=== PATIENT | female | born 1950 | race Two or more races ===

== ENCOUNTER → 2016-07-07 | Outpatient (CLI) | payer OTHER, MEDICARE | LOC: BRMIMAGING 14:32 | PROVIDERS: ATTEND Family Medicine | DX: R06.00 Dyspnea, unspecified (principal); Z85.3 Personal history of malignant neoplasm of breast | CPT/HCPCS: 71020-PO ==

== ENCOUNTER 2016-12-12 10:17 | Day surgery (SDC) | payer OTHER, MEDICARE ==
[2016-12-12] MEDS ORDERED: MIDAZOLAM 2 MG/2 ML VIAL ONE (10:44)
[2016-12-12] MEDS ORDERED: FLUMAZENIL 0.5 MG/5 ML MDV IVP ONE (10:44)
[2016-12-12] MEDS ORDERED: NALOXONE HCL 0.4 MG/ML INJ ONE (10:44)
[2016-12-12] MEDS ORDERED: NS 1,000 ML IV SCH (10:45)
[2016-12-12] MEDS ORDERED: fentaNYL 100 MCG/2 ML INJ ONE ×2 (10:45→13:27)
[2016-12-12 16:43] VITALS: RESP 14
[2016-12-12] MEDS ORDERED: ONDANSETRON 4 MG/2 ML VIAL IVP PRN (16:56)
[2016-12-12] MEDS ORDERED: ACETAMINOPHEN 325 MG TAB PO ONE (17:00)
--- NOTE | 2016-12-12 17:11 | CPEKG ---
Heart Rate: 76 RR Interval: 789 P-R Interval: 176 QRSD Interval: 96 QT Interval: 380 QTC Interval: 428 P [place]: 23 QRS [place]: 1 T Wave [place]: -12 EKG Severity - BORDERLINE ECG - EKG Impression: SINUS RHYTHM EKG Impression: BORDERLINE T ABNORMALITIES, INFERIOR LEADS Electronically Signed By: Everardo Castaneda 13-Dec-2016 19:24:42
[2016-12-12 17:43] VITALS: BP 121/85; O2SAT 91
== END 2016-12-12 17:35 | disposition home or self-care (01) ==
LOC: FIMAGING 10:17
PROVIDERS: ATTEND Internal Medicine Hematology & Oncology
DX: D14.31 Benign neoplasm of right bronchus and lung (principal); R91.8 Other nonspecific abnormal finding of lung field; Z85.3 Personal history of malignant neoplasm of breast; Z90.13 Acquired absence of bilateral breasts and nipples
CPT/HCPCS: J2250; J2310; J3010

== ENCOUNTER 2017-01-01 09:39 | Inpatient (IN) | payer OTHER, MEDICARE ==
--- NOTE | 2017-01-01 07:54 | PDANEPAE ---
ANE History of Present Illness 66 yo female with lung mass, possible metastatic breast cancer. ANE Past Medical History - Cardiovascular History Hx Hypertension: Yes Hx Arrhythmias: No Hx Chest Pain: No Hx Coronary Artery / Peripheral Vascular Disease: No Hx CHF / Valvular Disease: No Hx Palpitations: No - Pulmonary History Hx COPD: No Hx Asthma/Reactive Airway Disease: No Hx Recent Upper Respiratory Infection: No Hx Oxygen in Use at Home: No Hx Sleep Apnea: Yes Sleep Apnea Screening Result - Last Documented: Positive Pulmonary History Comment: SANTHOSH positive -uses CPAP - Neurologic History Hx Cerebrovascular Accident: No Hx Seizures: No Hx Dementia: No - Endocrine History Hx Diabetes: Yes Hypothyroid: Yes Obesity: moderate Endocrine History Comment: type 2. hypothyroidism - Renal History Hx Renal Disorders: Yes Renal History Comment: hx of kidney stones with lithotripsy - Liver History Hx Hepatic Disorders: No - Neurological & Psychiatric Hx Hx Neurological and Psychiatric Disorders: Yes Neurological / Psychiatric History Comment: hx of depression - Cancer History Hx Cancer: Yes Cancer History Comment: breast CA w/lymph node excision R side- some on L side - Congenital Disorder History Hx Congenital Disorders: No - GI History Hx Gastrointestinal Disorders: No Gastrointestinal History Comment: gallstone-no issues - Other Health History Other Health History: Right lobe lung mass. gout. - Chronic Pain History Chronic Pain: No - Surgical History Prior Surgeries: lung bx -. 05/03/14 bilateral mastectomy and reconstruction with lexie and jesus. 02/20/11 ureteroscopy with cristina CHEUNG Review of Systems Review of Systems: - Exercise capacity METS (RN): 4 METS - Systems Constitutional: Reports: no symptoms Cardiac: Reports: no symptoms Respiratory: Reports: cough (chronic morning cough) ANE Patient History - Allergies Allergies/Adverse Reactions: levofloxacin [From Levaquin] Allergy (Intermediate, Verified 03/20/14 20:42) HALLUCINATIONS/ANXIETY lithium Allergy (Verified 12/31/16 15:01) Other-Enter Comments Sulfa (Sulfonamide Antibiotics) Allergy (Verified 03/20/14 20:42) - Home Medications Home medications: home medication list seen and reviewed Home Medications: Allopurinol [Allopurinol 300 MG (RX)] 300 mg PO DAILY 03/21/14 [Last Taken 12/31 20:00] Aspirin [Aspirin 81mg (*)] 81 mg PO DAILY 03/21/14 [Last Taken 12/25/16] Levothyroxine [Synthroid 100 mcg (*)] 100 mcg PO DAILY06 03/21/14 [Last Taken 09:00] Losartan Potassium [Cozaar] 100 mg PO HS 03/21/14 [Last Taken 12/31/16 20:00] amLODIPine BESYLATE [Norvasc 10 mg (*)] 10 mg PO DAILY 03/21/14 [Last Taken 10/09 08:00] metFORMIN HCL [Glucophage 500 mg (*)] 500 mg PO TID 03/21/14 [Last Taken 20:30] Herbals/Supplements -Info Only 1 ea PO DAILY 04/25/14 [Last Taken 12/31/16] Simvastatin [Zocor 20 mg] 20 mg PO HS 04/25/14 [Last Taken 12/31/16 20:00] Anastrozole 1 mg PO DAILY 12/11/16 [Last Taken 12/31/16 08:00] - NPO status NPO Since - Liquids (Date): 01/01/17 NPO Since - Liquids (Time): 09:00 - Anes Hx Anes Hx: no prior problems - Smoking Hx Smoking Status: Never smoked Marijuana use: No - Family Anes Hx Family Anes Hx: neg - N/A Family Hx Anesthesia Complications: none ANE Labs/Vital Signs - Vital Signs Vital Signs: reviewed preoperatively; see RN documention for details Height: 154.94 cm Weight: 83.007 kg ANE Physical Exam - Airway Neck exam: FROM Mallampati Score: Class 2 - Pulmonary Pulmonary: clear to auscultation - Cardiovascular Cardiovascular: regular rate and rhythym - ASA Status ASA Status: III ANE Anesthesia Plan Anesthesia Plan: general endotracheal anesthesia (lidocaine and Precedex infusions for POPC), epidural (thoracic epidural for POPC) Lines/Monitors: arterial line, additional IV Specialized Airway: double lumen tube Total IV Anesthesia: No
[~2017-01-01 09:39] MED LIST: ACETAMINOPHEN 325 MG TAB PO PRN; BUPIVACAINE 0.5% 30 ML SDV ONE; D50W 25 GM/50 ML SYR IVP PRN; DEXMEDETOMIDINE IN 0.9 % NACL 100 ML IV ONE; DEXMEDETOMIDINE IN 0.9 % NACL 100 ML IV SCH; HYDROmorphONE/DILAUDID 1 MG/ML INJ IVP PRN; LIDOCAINE IV ONE; NS 1,000 ML IV SCH; NS IV ONE; OXYCODONE/APAP 5/325 TAB PO PRN; ceFAZolin 2 GM/SWFI 2 GM/20 ML SYR IVP ONE
[2017-01-01] MEDS ORDERED: DEXMEDETOMIDINE HCL 400 MCG in NS 100 ML IV SCH (10:00)
[2017-01-01] MEDS ORDERED: ceFAZolin 2 GM/SWFI 2 GM/20 ML SYR IVP ONE (10:12)
[2017-01-01] MEDS ORDERED: LR 1,000 ML IV ONE (10:37)
[2017-01-01] MEDS ORDERED: LIDOCAINE 1% 2 ML INJ ID PRN (10:37)
[2017-01-01] MEDS ORDERED: MIDAZOLAM 2 MG/2 ML VIAL ONE (11:48)
[2017-01-01] MEDS ORDERED: fentaNYL 250 MCG/5 ML INJ ONE (12:31)
[2017-01-01] MEDS ORDERED: PROPOFOL/EMULSION 500 MG/50 ML BOTTLE IV ONE (12:31)
[2017-01-01] MEDS ORDERED: ROCURONIUM 100 MG/10 ML VIAL ONE (12:31)
[2017-01-01] MEDS ORDERED: DEXAMETHASONE 4 MG/ML VIAL ONE ×2 (12:31)
[2017-01-01] MEDS ORDERED: D10W 250 ML PRN HYPOGLYCEMIA IV (13:00)
[2017-01-01] MEDS ORDERED: NALOXONE HCL 0.4 MG/ML INJ IVP PRN ×3 (13:05→13:56)
[2017-01-01] MEDS ORDERED: HYDROmorphONE/DILAUDID 6 MG/30 ML PCA IV PRN (13:05)
[2017-01-01] MEDS ORDERED: epHEDrine SULFATE 10 MG/ML SYR ONE (13:34)
[2017-01-01] MEDS ORDERED: MIDAZOLAM 2 MG/2 ML VIAL IVP ONE (13:35)
[2017-01-01] MEDS ORDERED: ONDANSETRON 4 MG/2 ML VIAL ONE (13:40)
[2017-01-01] MEDS ORDERED: PROMETHAZINE HCL 25 MG/ML INJ IVP PRN (13:56)
[2017-01-01] MEDS ORDERED: LR 500 ML IV PRN (13:56)
[2017-01-01] MEDS ORDERED: OXYCODONE/APAP 5/325 TAB PO PRN (13:56)
[2017-01-01] MEDS ORDERED: ALBUTEROL 3 ML DEYVIAL IH PRN (13:56)
[2017-01-01] MEDS ORDERED: BUPIVACAINE 0.75% 10 ML SDV IO SCH ×2 (14:15→21:00)
[2017-01-01] MEDS ORDERED: INSULIN REGULAR HUMAN 100 UNIT/ML SC ONE (14:20)
--- NOTE | 2017-01-01 14:27 | POSTANESTH ---
Post Anesthetic Evaluation Cardiovascular Status: Normal, Stable Respiratory Status: Normal, Stable Level of Consciousness/Mental Status: Can Participate in Eval, Mildly Sleepy, Arousable Pain Control: Adequate, Prn Tx Ordered Nausea/Vomiting Control: Adequate, Prn Tx Ordered Complications Possibly Related to Anesthesia: None Noted
[2017-01-01] MEDS ORDERED: INSULIN REGULAR HUMAN 100 UNIT/ML ONE (14:29)
[2017-01-01] MEDS ORDERED: fentaNYL 100 MCG/2 ML INJ ONE (14:30)
[2017-01-01] MEDS: fentaNYL 100 MCG/2 ML INJ IVP PRN ×4 (14:35→15:23)
[2017-01-01] MEDS ORDERED: HYDROmorphONE/DILAUDID 1 MG/ML INJ IVP PRN (15:21)
[2017-01-01] MEDS ORDERED: HYDROmorphONE/DILAUDID 1 MG/ML INJ ONE (15:39)
[2017-01-01] MEDS: INSULIN REGULAR HUMAN 100 UNIT/ML SC SCH ×3 (16:08→20:48)
--- NOTE | 2017-01-01 17:12 | POSTOPPROG ---
Post Op Note Date of Operation: 01/01/17 Surgeon: Ori Vernon Upper Trimmer: Nain Geiger Anesthesiologist: Dr Dillon Anesthesia: GET(General Endotracheal) Pre-op Diagnosis: lung mass Post-op Diagnosis: same Indication: lung mass Procedure: Thorascopic right lower lobe wedge Findings: small mass Inf/Abcess present in the surg proc area at time of surgery?: No Depth: Organ Space EBL: Minimal Specimen(s): lung mass
[2017-01-01] MEDS: ATORVASTATIN CALCIUM 10 MG TAB PO SCH (20:40)
[2017-01-01] MEDS: ALLOPURINOL 300 MG TAB PO SCH (20:40)
[2017-01-01] MEDS: LOSARTAN POTASSIUM 50 MG TAB PO SCH (20:40)
[2017-01-01] MEDS: ceFAZolin 2 GM/DEXTROSE 100 ML IV SCH (20:41)
[2017-01-01] MEDS: ONDANSETRON 4 MG/2 ML VIAL IVP PRN (20:56)
[2017-01-01] MEDS ORDERED: ceFAZolin 2 GM/SWFI 2 GM/20 ML SYR IVP SCH (21:00)
[2017-01-01] MEDS ORDERED: NON-FORMULARY NEW DRUG (Simvastatin [Simvastatin] 20 MG) PO SCH (21:00)
[2017-01-01] MEDS ORDERED: NON-FORMULARY NEW DRUG (Losartan Potassium [Cozaar] 100 MG) PO SCH (21:00)
[2017-01-01] MEDS: BUPIVACAINE 0.75% 10 ML SDV IO SCH (23:07)
[2017-01-02 04:52] LABS: % IMMATURE GRANULYOCYTES 0.6 % (0.0-1.1); ABSOLUTE IMMATURE GRANULOCYTES 0.06 10^3/uL (0.00-0.10); ADD DIFF? NO; ADD MORPH? NO; ADD SCAN? NO; ATYPICAL LYMPHOCYTE FLAG 10 (0-99); FRAGMENT RBC FLAG 0 (0-99); HEMATOCRIT 36.5 % (38.0-47.0); HEMOGLOBIN 12.5 g/dL (12.6-16.3); LEFT SHIFT FLG 0 (0-99); LIPEMIA HEMOLYSIS FLAG 90 (0-99); MEAN CELL HEMOGLOBIN 29.2 pg (27.9-34.1); MEAN CELL HEMOGLOBIN CONCENTR. 34.2 g/dL (32.4-36.7); MEAN CELL VOLUME 85.3 fL (81.5-99.8); MEAN PLATELET VOLUME 9.7 fL (8.7-11.7); PLATELET CLUMPS FLAG 10 (0-99); PLATELET COUNT 247 10^3/uL (150-400); RED BLOOD CELL COUNT 4.28 10^6/uL (4.18-5.33); RED CELL DISTRIBUTION WIDTH 14.6 % (11.5-15.2)
[2017-01-02 05:07] LABS: ANION GAP 11 mEq/L (8-16); CARBON DIOXIDE 23 mEq/l (22-31); CHLORIDE 105 mEq/L (97-110); CREATININE 0.6 mg/dL (0.6-1.0); GLOMERULAR FILTRATION RATE > 60; GLUCOSE 177 mg/dL (70-100); POTASSIUM 4.2 mEq/L (3.5-5.2); SODIUM 139 mEq/L (134-144)
[2017-01-02] MEDS: ceFAZolin 2 GM/DEXTROSE 100 ML IV SCH (05:17)
[2017-01-02] MEDS: BUPIVACAINE 0.75% 10 ML SDV IO SCH ×4 (05:17→22:27)
[2017-01-02] MEDS: LEVOTHYROXINE 100 MCG TAB PO SCH (05:17)
[2017-01-02] MEDS: INSULIN REGULAR HUMAN 100 UNIT/ML SC SCH ×4 (07:28→21:03)
[2017-01-02] MEDS: ONDANSETRON 4 MG/2 ML VIAL IVP PRN ×2 (07:40→10:25)
[2017-01-02] MEDS: HYDROCODONE/APAP 5/325 TAB PO PRN ×4 (08:33→22:31)
[2017-01-02] MEDS: ANASTROZOLE 1 MG TAB PO SCH (08:34)
[2017-01-02] MEDS: ASPIRIN 81 MG CHEWABLE TAB PO SCH (12:24)
--- NOTE | 2017-01-02 15:20 | SOAPPROG ---
SOAP Progress Note Assessment/Plan: Assessment: 66-year-old female status post right VATS surgery and wedge resection, pathology pending, history of breast cancer Pain well controlled, tolerating diet Physical exam Awake alert comfortable Chest CTA bilaterally, right chest tube in place bandage dry Heart regular rhythm rate Chest tube no leak, minimal output Chest x-ray improving right pneumothorax Plan: Continue Dilaudid and marking catheter for pain. Continue chest tube Okay to transfer to floor Seen earlier today by Dr. Vernon. 01/02/17 15:18 Objective: Vital Signs Temp Pulse Resp BP Pulse Ox 36.5 C 62 20 128/64 H 92 01/02/17 12:00 01/02/17 12:00 01/02/17 12:00 01/02/17 12:00 01/02/17 12:00 Laboratory Results 01/02/17 04:30 01/02/17 04:30 01/01/17 01/02/17 01/03/17 05:59 05:59 05:59 Intake Total 1755 Output Total 852 Balance 903 ICD10 Worksheet Patient Problems: Problems Problem Status Onset Acute renal failure (ARF) Acute
--- NOTE | 2017-01-02 15:52 | ASMTCMCOM ---
CM Note CM Note Notes: Reviewed patient's chart/progress notes. Patient was ambulating in halls today per therapy notes. Cleared by PT/OT. Anticipate, at this time, patient will be able to discharge home with support of her family. Case Management available should any needs arise. Date Signed: 01/02/2017 03:51 PM Electronically Signed By:Suzanne Jhaveri RN
--- NOTE | 2017-01-02 16:40 | PDINTPN ---
Computer Tape Librarian Progress Note Assessment/Plan: Assessment: RLL nodule s/p wedge resection: REcovering well post-op. SANTHOSH: ? severity. Using CPAP nightly. DM: Hyperglycemia persists. Plan: Continue CPAP with sleep. Follow BSs on SSI. Restart Metformin prior to discharge. 01/02/17 16:41 Subjective: Feels OK, pain control good, denies dyspnea. Objective: Vital Signs Temp Pulse Resp BP Pulse Ox 36.8 C 65 22 H 121/65 H 91 L 01/02/17 16:00 01/02/17 16:00 01/02/17 16:00 01/02/17 16:00 01/02/17 16:00 Laboratory Results 01/02/17 04:30 01/02/17 04:30 01/01/17 01/02/17 01/03/17 05:59 05:59 05:59 Intake Total 1755 Output Total 852 Balance 903 Persistent right PTX. basilar atelectasis. Images reviewed. Physical Exam - Physical Exam General Appearance: alert, no apparent distress EENT: normal ENT inspection Neck: normal inspection Respiratory: lungs clear, normal breath sounds, other (wound OK) Cardiac/Chest: regular rate, rhythm, No edema Abdomen: normal bowel sounds, non-tender Skin: normal color, warm/dry Extremities: normal inspection Neuro/Psych: alert, normal mood/affect, oriented x 3 ICD10 Worksheet Patient Problems: Problems Problem Status Onset Acute renal failure (ARF) Acute
--- NOTE | 2017-01-02 17:17 | GCON ---
[f rep st] CONSULTATION PULMONARY/CRITICAL CARE CONSULTATION DATE OF CONSULTATION: 01/01/2017 REFERRING PHYSICIAN: Ori Vernon MD REASON FOR REFERRAL: Evaluation and management of hyperglycemia and sleep apnea. HISTORY OF PRESENT ILLNESS: The patient is a 66-year-old woman with a history of breast cancer treat ed with bilateral mastectomy in 2014. She was referred to Dr. Vernon when a followup CT scan of her c hest in October 2016 demonstrated a 10 mm right lower lobe nodule and a 7 mm left lower lobe nodule which were new compared to her scans in 2013. There was also a right lower lobe lymph node. A biop sy was done that was negative. Because of the ongoing concern for cancer, she was referred for surge ry. Dr. Vernon performed a right thoracotomy today, and the patient returned to the intensive care un it. She is recovering from surgery, was extubated, and currently reports good pain control. She is not having any cough. PAST MEDICAL HISTORY: 1. Obstructive sleep apnea requiring CPAP. She was diagnosed based on a sleep study done at [facility] about 9 years ago. She is on CPAP and uses it regularly. She reports that she "can't sleep wit hout it." The machine reports the AHI in the morning and it is usually less than 4. She denies dayt german hypersomnolence. 2. Diabetes, treated with oral hypoglycemic agents. 3. Hypertension. MEDICATIONS: Levothyroxine, aspirin, losartan, amlodipine, metformin, allopurinol, anastrozole, and simvastatin. ALLERGIES: Levofloxacin, lithium, and sulfa. SOCIAL HISTORY: The patient is a nonsmoker and denies excessive alcohol. FAMILY HISTORY: Unremarkable. REVIEW OF SYSTEMS: A 10-point review of systems adds nothing to the history of present illness physi giovani. PHYSICAL EXAMINATION: GENERAL: The patient is awake, alert, and in no acute distress. VITAL SIGNS: Blood pressure is 122/65 with a heart rate of 66. She is afebrile. Oxygen saturations are 94% on 9 L. HEENT: Normocephalic and atraumatic. No icterus. NECK: No JVD. Trachea is midline. CHEST: Decreased breath sounds in the right base. CARDIAC: Regular rate and rhythm without murmur. ABDOMEN : Soft, nontender. Bowel sounds are present. EXTREMITIES: No clubbing, cyanosis, or edema. NEURO LOGIC: Awake and alert. She is able to move all 4 extremities symmetrically. LABORATORY DATA: Blood sugars are 179-215. A chest x-ray shows a post right thoracotomy with an charmaine ropriately-placed chest tube and a small apical pneumothorax. Images reviewed. ASSESSMENT: 1. Lung nodule, status post thoracotomy/wedge resection. The patient is recovering well from surgery , with good pain control. 2. Obstructive sleep apnea. This was diagnosed 9 years ago. I do not know the severity of this. S he is on CPAP and reports good compliance and efficacy, as well as symptom control. 3. Diabetes. The patient currently has moderate hyperglycemia, not surprising given postoperatively . RECOMMENDATIONS: 1. The patient should continue CPAP use in the hospital. She will benefit from the use of supplemen elizabeth oxygen with CPAP if she has hypoxemia related to her anesthesia/pain control/splinting. 2. Close monitoring of blood sugars, using sliding scale insulin p.r.n. Metformin can be resumed af ter surgery. /[id number]/MODL
[2017-01-02] MEDS: LOSARTAN POTASSIUM 50 MG TAB PO SCH (20:08)
[2017-01-02] MEDS: ALLOPURINOL 300 MG TAB PO SCH (20:08)
[2017-01-02] MEDS: ATORVASTATIN CALCIUM 10 MG TAB PO SCH (20:09)
[2017-01-03] MEDS: LEVOTHYROXINE 100 MCG TAB PO SCH (05:32)
[2017-01-03] MEDS: BUPIVACAINE 0.75% 10 ML SDV IO SCH ×4 (05:33→22:21)
[2017-01-03] MEDS: HYDROCODONE/APAP 5/325 TAB PO PRN ×3 (05:39→15:34)
[2017-01-03] MEDS: INSULIN REGULAR HUMAN 100 UNIT/ML SC SCH ×4 (08:30→21:39)
--- NOTE | 2017-01-03 08:33 | SOAPPROG ---
SOAP Progress Note Assessment/Plan: Assessment/Plan: 66 Y F s/p wedge lung biopsy, POD#2. Pathology pending. Chest tube to water seal today. CXR in am. Possibly remove tubes tomorrow if does well. SANTHOSH. Using CPAP at night. DM. Metformin. Insulin protocol. Continue pain control and routine post op care. Increase activity/OOB today. Seen with Dr. Payton. Dispo: pending. likely to home when ready. S: No SOB. Painful, but meds helping. O: alert, nad mmm ctab no air leak, +tidaling rrr wounds dry, well dressed 01/03/17 08:28 Objective: Vital Signs Temp Pulse Resp BP Pulse Ox 36.9 C 68 14 155/97 H 93 01/03/17 08:00 01/03/17 08:00 01/03/17 08:00 01/03/17 08:00 01/03/17 08:00 Laboratory Results 01/02/17 04:30 01/02/17 04:30 01/02/17 01/03/17 01/04/17 05:59 05:59 05:59 Intake Total 1755 1800 Output Total 852 646 Balance 903 1154 ICD10 Worksheet Patient Problems: Problems Problem Status Onset Acute renal failure (ARF) Acute
[2017-01-03] MEDS: ASPIRIN 81 MG CHEWABLE TAB PO SCH (10:42)
[2017-01-03] MEDS: ANASTROZOLE 1 MG TAB PO SCH (10:43)
[2017-01-03] MEDS ORDERED: ENALAPRILAT DIHYDRATE 1.25 MG/ML VIAL IVP PRN (17:59)
[2017-01-03] MEDS ORDERED: LACTULOSE 20 GM/30 ML UDCUP PO PRN (19:36)
[2017-01-03] MEDS ORDERED: MAGNESIUM HYDROXIDE 30 ML UDCUP PO PRN (19:36)
[2017-01-03] MEDS ORDERED: POLYETHYLENE GLYCOL 3350 17 GM PKT PO PRN (19:36)
[2017-01-03] MEDS ORDERED: BISACODYL 10 MG SUPP PR PRN (19:36)
[2017-01-03] MEDS ORDERED: LORazepam 2 MG/ML INJ IVP PRN (20:35)
[2017-01-03] MEDS: KETOROLAC 15 MG/1 ML SDV IVP SCH (20:47)
[2017-01-03] MEDS: SENNOSIDES/DOCUSATE SODIUM TAB PO SCH (20:49)
[2017-01-03] MEDS: ATORVASTATIN CALCIUM 10 MG TAB PO SCH (20:49)
[2017-01-03] MEDS: LOSARTAN POTASSIUM 50 MG TAB PO SCH (20:49)
[2017-01-03] MEDS: ALLOPURINOL 300 MG TAB PO SCH (20:49)
[2017-01-04] MEDS: KETOROLAC 15 MG/1 ML SDV IVP SCH ×3 (00:08→13:24)
[2017-01-04] MEDS: BUPIVACAINE 0.75% 10 ML SDV IO SCH ×2 (01:18→09:52)
[2017-01-04] MEDS: LEVOTHYROXINE 100 MCG TAB PO SCH (05:49)
[2017-01-04 07:43] VITALS: PULSE 71; RESP 16; O2SAT 92
[2017-01-04] MEDS: INSULIN REGULAR HUMAN 100 UNIT/ML SC SCH ×2 (08:57→13:25)
[2017-01-04] MEDS: ANASTROZOLE 1 MG TAB PO SCH (09:52)
[2017-01-04] MEDS: ASPIRIN 81 MG CHEWABLE TAB PO SCH (09:52)
[2017-01-04] MEDS: SENNOSIDES/DOCUSATE SODIUM TAB PO SCH (09:52)
[2017-01-04 11:56] VITALS: BP 144/94; TEMP 98.1
--- NOTE | 2017-01-04 16:36 | ASDISCHSUM ---
Discharge Information Plan Status:Home with No Needs Medically Cleared to Leave:01/03/2017 Discharge Date:01/04/2017 03:11 PM CM D/C Disposition:Home, Routine, Self-Care ADT D/C Disposition:Home, Routine, Self-Care Projected Discharge Date:01/04/2017 03:11 PM Transportation at D/C:Family Discharge Delay Reason: Follow-Up Date:01/04/2017 03:11 PM Discharge Slot: Final Diagnosis: Placement Information Patient Contact Information Contact Name:NEIL Relationship:Alcon Address: [place]: [facility] Phone: [facility] Code: Email: Financial Information Financial Class: Primary Plan Desc:MEDICARE INPATIENT Primary Plan Number:[id number] Secondary Plan Desc:[employer]/MDR SUPPLEMENT Secondary Plan Number:[id number] Assessment Information [facility] CM Progress Note CM Note CM Note Notes: Reviewed patient's chart/progress notes. Patient was ambulating in halls today per therapy notes. Cleared by PT/OT. Anticipate, at this time, patient will be able to discharge home with support of her family. Case Management available should any needs arise. Date Signed: 01/02/2017 03:51 PM Electronically Signed By:Suzanne Jhaveri RN Intervention Information Intervention Type:*IM-Signed Date of Service:01/04/2017 10:08 AM Patient Type:Inpatient Staff Member:LADAN Agarwal, [employer] Hours: Discipline: Severity: Comment:
[2017-01-08 15:13] LABS: FIXED IN 10%FORM 6-72HR Yes; FIXED IN 10%FORM W/IN 1 HR Yes
--- NOTE | 2017-01-12 05:38 | GOP ---
[f rep st] OPERATIVE REPORT DATE OF OPERATION: 01/01/2017 SURGEON: Ori Vernon MD MARKETING DATA SPECIALIST: Radha Lorenzana, PAC. PREOPERATIVE DIAGNOSIS: Right lung mass and a history of breast cancer. POSTOPERATIVE DIAGNOSIS: Probable metastatic breast cancer with a right lower lobe nodule. PROCEDURE PERFORMED: Video-Assisted Thoracoscopic Surgery right lower lobe wedge resection. FINDINGS: The patient was found to have a 2.5 cm nodule in the right lower lobe posteriorly, which a ppeared to be consistent with a metastasis from breast cancer. Final path is pending. DESCRIPTION OF PROCEDURE: Patient taken to the operating room where she received satisfactory genera l endotracheal anesthesia. She had a double-lumen endotracheal tube placed, and art line placed. A short incision was made in the 6th intercostal space in the mid-axillary line. A trocar was introduc ed. Good visualization was obtained. Two other trocars were placed under direct vision. The lobes were searched. No definite nodule could be absolutely identified. One of the trocars were enlarged to form a short mini thoracotomy. The left lower lobe was elevated and palpation of the lobe reveale d the nodule in question. This was then excised with multiple firings of the Endo-AC stapler creati ng a wedge excisional biopsy of the mass. This was sent to Pathology and confirmed to be a malignant nodule, consistent with metastatic breast cancer. No other nodules could be identified in the chest . A #28 chest tube was brought in through one of the trocar sites and secured to the skin with silk suture. The mini thoracotomy incision was closed with #1 Vicryl pericostal sutures and a running 0 V icryl suture for the muscular layers, 2-0 Vicryl for the subcu, 4-0 Monocryl subcuticular stitch for the skin. The remaining trocar sites were closed with 4-0 Monocryl subcuticular sutures. A Marcaine catheter was placed in the right thorax as well and secured to the skin with a silk suture. The wou nds were infiltrated with 0.5% Marcaine. She tolerated the procedure well. She was taken to the rec overy room in good condition. There were no complications. /[id number]/MODL
== END 2017-01-04 15:11 | disposition home or self-care (01) | DRG 168 ==
LOC: F3E 09:39 → F2N 16:01 → F2W 01-02 17:35
PROVIDERS: ADMIT Surgery; ATTEND Surgery
PROC: 0BBF4ZX Excision of Right Lower Lung Lobe, Percutaneous Endoscopic Approach, Diagnostic (ICD-10-PCS; principal; 2017-01-01 11:15)
DX: C34.31 Malignant neoplasm of lower lobe, right bronchus or lung (principal); Z85.3 Personal history of malignant neoplasm of breast; G47.33 Obstructive sleep apnea (adult) (pediatric); E11.65 Type 2 diabetes mellitus with hyperglycemia; I10 Essential (primary) hypertension; E03.9 Hypothyroidism, unspecified
CPT/HCPCS: 97116-GP; 97161-GP; 97166-GO; 97530-GO; 97535-GO; G8978-GP-CJ; G8979-GP-CI; G8987-GO-CI; G8988-GO-CI; G8989-GO-CI; J0171; J0690; J1100; J1170; J1815; J1885; J2250; J2405; J2704; J3010

== ENCOUNTER → 2017-01-07 | Outpatient (CLI) | payer OTHER, MEDICARE | LOC: FIMAGING 14:01 | PROVIDERS: ATTEND Surgery | DX: J93.9 Pneumothorax, unspecified (principal) ==

== ENCOUNTER → 2017-06-03 | Outpatient (CLI) | payer OTHER, MEDICARE | LOC: FIMAGING 11:55 | PROVIDERS: ATTEND Surgery | DX: C34.80 Malignant neoplasm of overlapping sites of unspecified bronchus and lung (principal); Z95.828 Presence of other vascular implants and grafts ==

== ENCOUNTER → 2017-06-16 | Outpatient (CLI) | payer OTHER, MEDICARE | LOC: BHFA 10:00 | PROVIDERS: ATTEND Internal Medicine Cardiovascular Disease | DX: Z51.11 Encounter for antineoplastic chemotherapy (principal) ==

== ENCOUNTER → 2018-01-22 | Outpatient (CLI) | payer OTHER, MEDICARE | LOC: BHFA 10:45 | PROVIDERS: ATTEND Internal Medicine Interventional Cardiology | DX: Z51.11 Encounter for antineoplastic chemotherapy (principal) ==